=== PATIENT | female | born 1980 | race Two or more races ===

== ENCOUNTER 2022-03-08 13:45 | Observation (INO) | payer MEDICAID, OTHER ==
[~2022-03-08] VITALS: Ht 160 cm; Wt 83.0 kg
[2022-03-08] MEDS ORDERED: PREN-96 PO (14:44)
== END 2022-03-08 15:50 | disposition home or self-care (01) ==
LOC: LDRP 13:45 → UNDOADMOB 13:45 → LDRP 13:58
PROVIDERS: ADMIT Obstetrics & Gynecology; ATTEND Obstetrics & Gynecology
DX: O36.8130 Decreased fetal movements, third trimester, not applicable or unspecified (principal); Z3A.31 31 weeks gestation of pregnancy
CPT/HCPCS: 59025; 76818; 81002; 94760; G0378